=== PATIENT | female | born 1965 | race Caucasian/White ===

== ENCOUNTER → 2020-09-06 | Outpatient (CLI) | payer BC ==
[2020-09-06 14:38] LABS: BUN/CREATININE RATIO 16 (0-10)
== END ==
LOC: LAB 09:09
PROVIDERS: Emergency Medicine
DX: E03.8 Other specified hypothyroidism (principal); E55.9 Vitamin D deficiency, unspecified; R53.83 Other fatigue
CPT/HCPCS: 36415; 80048; 84443

== ENCOUNTER → 2021-02-01 | Outpatient (CLI) | payer BC | LOC: LAB 08:39 | DX: E03.8 Other specified hypothyroidism (principal) | CPT/HCPCS: 84443 ==

== ENCOUNTER 2021-08-11 17:23 | Emergency (ER) | payer BC ==
[2021-08-11 21:10] LABS: BUN/CREATININE RATIO 16 (0-10)
== END 2021-08-12 00:13 | disposition home or self-care (01) ==
LOC: ER1 17:23
PROVIDERS: Physician Assistant
DX: J06.9 Acute upper respiratory infection, unspecified (principal); J45.909 Unspecified asthma, uncomplicated; K21.9 Gastro-esophageal reflux disease without esophagitis
CPT/HCPCS: 80048; 96372; 99284; J1100; Q9967

== ENCOUNTER → 2021-08-11 | Outpatient (CLI) | payer BC ==
[2021-08-11 13:25] LABS: HEMOGLOBIN 14.2 gm/dl (12.3-15.3); RED BLOOD COUNT 4.66 M/UL (4.00-5.10); WHITE BLOOD COUNT 6.8 K/UL (4.5-11.0)
== END ==
LOC: LAB 12:56
PROVIDERS: Nurse Practitioner
DX: J20.9 Acute bronchitis, unspecified (principal); R06.02 Shortness of breath; R06.2 Wheezing; R07.89 Other chest pain
CPT/HCPCS: 36415; 71046; 83880; 85025; 85379